=== PATIENT | female | born 1970 | race Caucasian/White ===

== ENCOUNTER 2017-09-19 21:38 | Inpatient (IN) ==
[2017-09-19] MEDS ORDERED: 0.9 % Sodium Chloride 1,000 ML IVC ONE (21:58)
[2017-09-19 22:21] LABS: Bilirubin,Urine Negative (Negative); Blood,Urine Negative (Negative); Clarity,Urine Cloudy (Clear); Color,Urine Yellow (Yellow); Glucose,Urine (UA) Normal (Normal); Ketones,Urine Negative (Negative); Leukocyte Esterase,Urine Small (Negative); Nitrite,Urine Negative (Negative); Protein,Urine 30 mg/dL (Neg-Trace); Specific Gravity,Urine 1.022 (1.010-1.025); Urobilinogen,Urine Normal (Normal)
[2017-09-19 22:22] LABS: Bacteria,Urine None Seen per hpf (None-Few); Squamous Epithelial Cell,Urine Many per lpf (None-Few)
[2017-09-19 22:28] LABS: Basophils # 0.1 K/mcL (0.0-0.2); Basophils % 0.8 %; Eosinophils # 0.4 K/mcL (0.0-0.6); Hematocrit 45.2 % (35.3-44.9); Immature Granulocytes % 0.5 % (0-4); Lymphocytes # 4.3 K/mcL (0.6-4.6); Lymphocytes % 49.5 %; Mean Corpuscular HGB Conc 33.2 g/dL (31.6-35.5); Mean Corpuscular Hemoglobin 30.5 pg (28.0-33.3); Mean Corpuscular Volume 92.1 fL (83.0-100.0); Mean Platelet Volume 9.9 fL (9.4-12.4); Monocytes # 0.5 K/mcL (0.0-1.3); Monocytes % 6.1 %; Neutrophils # 3.3 K/mcL (1.6-8.9); Platelet Count 270 K/mcL (140-400); Red Blood Count 4.91 M/mcL (3.82-4.97); Red Cell Distribution Width 11.9 % (11.5-14.5); Segmented Neutrophils % 38.1 %
[2017-09-19 22:37] LABS: Activated Partial Thrombo Time 23.1 Seconds (26.0-36.0)
[2017-09-19 22:37] LABS: Hyaline Casts,Urine Many per lpf (None-Few)
--- NOTE | 2017-09-19 22:38 | Emergency Department Note ---
Disposition Clinical Impression: Syncope Qualifiers: Syncope type: unspecified Qualified Code(s): R55 - Syncope and collapse Disposition: Still a Patient Forms: ED Satisfaction Letter Time of Disposition: 22:42 General Adult HPI - General Chief complaint: ED Syncope Stated complaint: AMS Time Seen by Provider: 09/19/17 21:42 Source: patient, family, EMS Mode of arrival: EMS Limitations: no limitations Nursing Notes Reviewed: Yes Vital Signs Reviewed: Yes - History of Present Illness HPI Narrative: 47-year-old female presenting to the emergency department via EMS with acute altered mental status. Patient was out eating dinner at a restaurant with her family when she stated she felt sick to her stomach and then leaned her head against the wall and "dazed out". Family states she did not respond for multiple minutes. Patient did not lose consciousness. Patient did not fall or hit her head. Patient denies any chest pain, shortness of breath, abdominal pain. She states she has a significant past medical history of a right-sided carotid dissection in 1994. Otherwise patient is healthy. Patient denies any symptoms like this before. She states she has no focal neurological deficit now. She is stable with no complaints at this time. Pain Scale: 0 - Related Data Allergies Allergy/AdvReac Type Severity Reaction Status Date / Time sulfamethoxazole Allergy Hives Verified 09/19/17 21:41 [From Bactrim] trimethoprim [From Bactrim] Allergy Hives Verified 09/19/17 21:41 All systems ED: reviewed and negative except as stated. Constitutional: Denies: fever, chills Eyes: Reports: as per HPI ENT ED: Reports: as per HPI Cardiovascular: Denies: chest pain, palpitations Respiratory: Denies: cough, dyspnea, wheezes Gastrointestinal: Denies: abdominal pain, nausea, vomiting Genitourinary: Reports: as per HPI Musculoskeletal: Reports: as per HPI Integumentary: Reports: as per HPI Neurological: Denies: weakness, numbness, paresthesias Psychiatric: Reports: as per HPI Endocrine: Reports: as per HPI Hematological/Lymphatic: Reports: as per HPI Allergic/Immunologic: Reports: as per HPI Past Medical History - Past Medical History Attestation: Yes The following information was validated with the patient. Medical history: Reports: CVA Psychiatric history: Reports: anxiety, depression - Social History Smoking Status: Current some day smoker Smokeless Tobacco Status: No Alcohol use: Reports: occasionally, recent Drug use: Reports: none Physical Exam - General Limitations: no limitations General appearance: alert, in no apparent distress - Head Head exam: atraumatic, normocephalic, normal inspection - Eye Eye exam: Present: normal appearance, PERRL, EOMI. Absent: scleral icterus, conjunctival injection, nystagmus - ENT ENT exam: normal oropharynx, mucous membranes moist - Chest Chest inspection: Present: normal inspection, symmetric chest wall rise. Absent : tenderness, rash - Respiratory Respiratory exam: Present: normal lung sounds bilaterally. Absent: respiratory distress, wheezes - Cardiovascular Cardiovascular exam: Present: regular rate, normal rhythm, normal heart sounds - Abdominal Exam Abdominal exam: Present: soft, Non-Tender. Absent: distention, guarding, rebound - Extremities Exam Extremities exam: Present: normal inspection, full ROM - Neurological Exam Neurological exam: Present: alert, oriented X3, CN II-XII intact, other (No focal neurological deficit. Patient's cerebellar exam within normal limits. Cranial nerve exam within normal limits. Bilateral upper extremity 5 out of 5 muscle strength. Sensation intact bilateral upper and lower extremity. Distal pulses 2+ in all extremities.). Absent: motor sensory deficit - Psychiatric Psychiatric exam: Present: normal affect, normal mood - Skin Skin exam: Present: warm, intact Course Course Narrative: 47-year-old female presenting to the emergency department chief complaint of acute altered mental status. Patient has significant history of previous carotid dissection. We will obtain basic lab work for syncope along with a CTA head and neck. Patient's alert and oriented 3 in the room with stable vital signs at this time. Patient agrees with the plan. She has a nonfocal neurological exam at this time. Patient's dates she has no complaints and is at baseline at this time. - Reevaluation(s) Reevaluation #1: Patient's lab work is pending and imaging pending at this time. I will sign the patient to my fellow resident Dr. Munguia at this time. Patient's alert and oriented 3 in the room with stable vital signs at this time. Time: 22:42 Vital Signs Temperature 97.7 F 09/19/17 21:42 Pulse Rate 76 09/19/17 21:42 Respiratory Rate 17 09/19/17 21:42 Blood Pressure 118/59 09/19/17 21:42 O2 Sat by Pulse Oximetry 99 09/19/17 21:42 Temperature 97.7 F 09/19/17 21:42 Pulse Rate 59 09/19/17 22:24 Respiratory Rate 18 09/19/17 22:24 Blood Pressure 118/59 09/19/17 22:24 O2 Sat by Pulse Oximetry 98 09/19/17 22:24 Oxygen Delivery Oxygen Delivery Room Air Medical Decision Making - Lab Data Result diagrams: 09/19/17 22:16 09/19/17 22:16 Lab Results 09/19/17 09/19/17 09/19/17 Range/Units 22:10 22:16 22:16 WBC 8.8 (4.3-11.1) K/mcL RBC 4.91 (3.82-4.97) M/mcL Hgb 15.0 (11.5-15.4) g/dL Hct 45.2 H (35.3-44.9) % MCV 92.1 (83.0-100.0) fL MCH 30.5 (28.0-33.3) pg MCHC 33.2 (31.6-35.5) g/dL RDW 11.9 (11.5-14.5) % Plt Count 270 (140-400) K/mcL MPV 9.9 (9.4-12.4) fL Immature Gran % 0.5 (0-4) % Seg Neutrophils % 38.1 % Lymphocytes % 49.5 % Monocytes % 6.1 % Eosinophils % 5.0 % Basophils % 0.8 % Neutrophils # 3.3 (1.6-8.9) K/mcL Lymphocytes # 4.3 (0.6-4.6) K/mcL Monocytes # 0.5 (0.0-1.3) K/mcL Eosinophils # 0.4 (0.0-0.6) K/mcL Basophils # 0.1 (0.0-0.2) K/mcL PT 11.0 (9.4-12.1) Seconds INR 1.0 APTT 23.1 L (26.0-36.0) Seconds Sodium (136-145) mEq/L Potassium (3.5-4.5) mEq/L Chloride (98-109) mEq/L Carbon Dioxide (19-29) mEq/L BUN (7-20) mg/dL Creatinine (0.57-1.11) mg/dL Est GFR ( Amer) (> 60) Est GFR (Non-Af Amer) (> 60) BUN/Creatinine Ratio (6-26) Glucose (70-99) mg/dL Calculated Osmolality (280-300) Lactic Acid (0.5-2.2) mmol/L Calcium (8.6-10.8) mg/dL Total Bilirubin (0.2-1.2) mg/dL AST (5-34) Units/L ALT (0-55) Units/L Alkaline Phosphatase (38-126) Units/L Troponin I (0-0.03) ng/mL Serum Total Protein (6.0-8.3) g/dL Albumin (3.5-5.0) g/dL Globulin (2.4-3.5) g/dL Albumin/Globulin Ratio (1.1-2.2) Ur Specimen Adequacy See below A Urine Color Yellow (Yellow) Urine Clarity Cloudy A (Clear) Urine pH 6.0 (5.0-8.0) pH Units Ur Specific [place] 1.022 (1.010-1.025) Urine Protein 30 H (Neg-Trace) mg/dL Urine Glucose (UA) Normal (Normal) mg/dL Urine Ketones Negative (Negative) mg/dL Urine Blood Negative (Negative) Urine Nitrite Negative (Negative) Urine Bilirubin Negative (Negative) Urine Urobilinogen Normal (Normal) mg/dL Ur Leukocyte Esterase Small H (Negative) Urine Microscopic RBC 3-5 H (0-3) per hpf Urine Microscopic WBC 5-15 H (0-3) per hpf Ur Squamous Epith Cells Many H (None-Few) per lpf Urine Bacteria None Seen (None-Few) per hpf Hyaline Casts Many H (None-Few) per lpf 09/19/17 09/19/17 09/19/17 Range/Units 22:16 22:16 22:16 WBC (4.3-11.1) K/mcL RBC (3.82-4.97) M/mcL Hgb (11.5-15.4) g/dL Hct (35.3-44.9) % MCV (83.0-100.0) fL MCH (28.0-33.3) pg MCHC (31.6-35.5) g/dL RDW (11.5-14.5) % Plt Count (140-400) K/mcL MPV (9.4-12.4) fL Immature Gran % (0-4) % Seg Neutrophils % % Lymphocytes % % Monocytes % % Eosinophils % % Basophils % % Neutrophils # (1.6-8.9) K/mcL Lymphocytes # (0.6-4.6) K/mcL Monocytes # (0.0-1.3) K/mcL Eosinophils # (0.0-0.6) K/mcL Basophils # (0.0-0.2) K/mcL PT (9.4-12.1) Seconds INR APTT (26.0-36.0) Seconds Sodium 137 (136-145) mEq/L Potassium 3.6 (3.5-4.5) mEq/L Chloride 104 (98-109) mEq/L Carbon Dioxide 22 (19-29) mEq/L BUN 10 (7-20) mg/dL Creatinine 0.85 (0.57-1.11) mg/dL Est GFR ( Amer) > 60 (> 60) Est GFR (Non-Af Amer) > 60 (> 60) BUN/Creatinine Ratio 12 (6-26) Glucose 54 L (70-99) mg/dL Calculated Osmolality 281 (280-300) Lactic Acid 2.3 H (0.5-2.2) mmol/L Calcium 9.0 (8.6-10.8) mg/dL Total Bilirubin 0.2 (0.2-1.2) mg/dL AST 16 (5-34) Units/L ALT 18 (0-55) Units/L Alkaline Phosphatase 81 (38-126) Units/L Troponin I 0.00 (0-0.03) ng/mL Serum Total Protein 7.5 (6.0-8.3) g/dL Albumin 3.7 (3.5-5.0) g/dL Globulin 3.8 H (2.4-3.5) g/dL Albumin/Globulin Ratio 1.0 L (1.1-2.2) Ur Specimen Adequacy Urine Color (Yellow) Urine Clarity (Clear) Urine pH (5.0-8.0) pH Units Ur Specific [place] (1.010-1.025) Urine Protein (Neg-Trace) mg/dL Urine Glucose (UA) (Normal) mg/dL Urine Ketones (Negative) mg/dL Urine Blood (Negative) Urine Nitrite (Negative) Urine Bilirubin (Negative) Urine Urobilinogen (Normal) mg/dL Ur Leukocyte Esterase (Negative) Urine Microscopic RBC (0-3) per hpf Urine Microscopic WBC (0-3) per hpf Ur Squamous Epith Cells (None-Few) per lpf Urine Bacteria (None-Few) per hpf Hyaline Casts (None-Few) per lpf Attestation Statement - Attestation Attestation: I, Robert Juan, examined this patient and my medical decision-making was reviewed with the POT ANNEALER/PA/Advanced Practice Nurse/Resident Physician. I agree with the documented findings, disposition and treatment plan as described except to the extent set forth below. 47-year-old female presents emergency Department after syncopal episode. Patient was in a restaurant, suddenly felt lightheaded and lost consciousness. Patient was apparently unconscious until EMS arrived however once she was in the EMS truck she awoke and did not have a postictal period. Patient did not receive Narcan or other medical intervention. Patient is alert and oriented in the emergency department. Patient denies chest pain, nausea, vomiting, palpitations prior to losing consciousness. EKG shows a normal sinus rhythm without evidence of ischemia. Patient care will be transferred to Dr. Perez pending laboratory evaluation and imaging and disposition.
[2017-09-19 22:44] LABS: Alanine Aminotransferase 18 Units/L (0-55); Albumin 3.7 g/dL (3.5-5.0); Alkaline Phosphatase 81 Units/L (38-126); Aspartate Amino Transferase 16 Units/L (5-34); BUN/Creatinine Ratio 12 (6-26); Bilirubin,Total 0.2 mg/dL (0.2-1.2); Blood Urea Nitrogen 10 mg/dL (7-20); Carbon Dioxide 22 mEq/L (19-29); Chloride 104 mEq/L (98-109); Globulin 3.8 g/dL (2.4-3.5); Glucose 54 mg/dL (70-99); Osmolality,Calculated 281 (280-300); Potassium 3.6 mEq/L (3.5-4.5); Sodium 137 mEq/L (136-145); Total Protein 7.5 g/dL (6.0-8.3); eGFR For African Americans > 60 (> 60); eGFR For Non-African Americans > 60 (> 60)
[2017-09-20] MEDS ORDERED: D5% in 0.9% NACL w KCl 20 MEQ/1,000 ML MLS IVC SCH (03:45)
--- NOTE | 2017-09-20 05:39 | Emergency Department Note ---
START Narrative - START START: I examined this patient and my medical decision-making was reviewed with the Resident Physician. I agree with the documented findings, disposition and treatment plan as described except to the extent set forth below. Patient presents with syncope. 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 Initially his hypoglycemia. Plan to admit for further evaluation of hyperglycemia, syncope, carotid occlusion.
[2017-09-20] MEDS ORDERED: Acetaminophen 325 MG TABLET PO PRN (06:18)
[2017-09-20] MEDS ORDERED: Naloxone 0.4 MG/ML INJ IVP PRN (06:18)
--- NOTE | 2017-09-20 06:31 | Internal Med History&Physical ---
Date of Encounter: 09/20/17 Time of Encounter: 06:10 Assessment and Plan (1) Seizure Current visit: Yes Status: Acute 1. Will place in seizure precautions. 2. Will order MRI and EEG. 3. Consult Neurology. 4. Monitor hourly glucose levels and continue IVF with Dextrose for now. 5. Hold Wellbutrin and Abilify for concerns of possible seizure side effects. (2) Hypoglycemia Current visit: Yes Status: Acute 1. Hourly glucose checks and continued IVF with dextrose until glucose levels stabilize. 2. Check TSH. 3. Patient denies any prolonged fasting or diet change. (3) DVT prophylaxis Current visit: Yes Status: Acute 1. Heparin SQ. Internal Medicine - H&P: HPI Chief complaint: seizure; low glucose Admitted From: Emergency Dept Plans for Post Hospital Care: Home History of present illness: Ms. Patel is a 47 year old female [facility] of [facility] and new onset seizure witnessed by the patient's daughter. Patient does not recall any events of last night other then waking up with EMS at her side and in the hospital. Patient states that her daughter called EMS after she saw the patient having what appeared to be seizure activity and unresponsiveness. In the ER, patient was noted to be hypoglycemic and was given dextrose as well as IV fluids. She was subsequently admitted to the hospitalist service. Upon my assessment of the patient, she feels back to her baseline. She does not recall any events of last night other than as noted above. She has never had seizure activity before. She denies any fevers, chills, cough, vomiting, or diarrhea. She is not diabetic and has not been trying to lose weight or curb her diet. She has been eating regularly and has never had problems with hypoglycemia before. 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 Other than difficulty with her gait and ambulation, she has adapted well to her disability. She does not take any chronic medications other than Wellbutrin and Abilify. Based upon my prior knowledge of Wellbutrin, I suspect that this may be associated with rare seizure side effects. We will withhold her home medications until we can confirm the medications and side effects. Meanwhile, I have her on hourly glucose checks and IV fluids with dextrose until her glucose can stabilize. She denies taking any other medications -- either prescribed or [id number]. Past Med Surg Social Fam HX - Past Medical History Attestation: Yes The following information was validated with the patient. Source: patient Medical history: CVA Psychiatric history: anxiety, depression - Past Surgical History Surgical History: no surgical history - Social History Smoking Status: Current some day smoker Smokeless Tobacco Status: No Alcohol use: occasionally, recent Drug use: none Current living situation: Home, With Family Activity Level: Independent ambulation Recent Out of Country Travel Within the Last 8 Weeks: No - Family History Mother Hx Family Neurologic Disorders: Yes (stroke) Internal Medicine - H&P: Meds 3 Allergy/AdvReac Type Severity Reaction Status Date / Time sulfamethoxazole Allergy Hives Verified 09/19/17 21:41 [From Bactrim] trimethoprim [From Bactrim] Allergy Hives Verified 09/19/17 21:41 - Constitutional Constitutional: no chills, no fever(s), no night sweats - EENT Eyes: no blurry vision, no change in vision Ears: no ear pain, no tinnitus Nose, mouth and throat: no nasal congestion, no sinus pressure, no sore throat - Cardiovascular Cardiovascular ROS IM: no chest pain, no diaphoresis, no dyspnea, no dyspnea on exertion - Respiratory Respiratory: no cough, no dyspnea, no hemoptysis - Gastrointestinal Gastrointestinal: no abdominal pain, no diarrhea, no hematemesis, no hematochezia, no melena, no nausea, no vomiting - Genitourinary Genitourinary: no dysuria, no flank pain, no hematuria - Musculoskeletal Musculoskeletal ROS IM: no arthralgias, no atrophy, no back pain - Integumentary Integumentary IM: no rash, no jaundice - Neurological Neurological ROS: convulsions, no dizziness, no focal weakness, no frequent falls, no headache(s), no numbness, no paresthesias - Psychiatric Psychiatric: anxiety, no depression - Endocrine Endocrine IM: no cold intolerance, no heat intolerance, no polydipsia, no polyphagia, no polyuria - Hematologic/Lymphatic Hematologic/Lymphatic: no easy bruising - Allergic/Immunologic Allergic/Immunologic: no wheezing, no GI upset with certain foods - Constitutional Vitals: Temp Pulse Resp BP Pulse Ox 98.3 F 68 20 113/62 95 09/20/17 03:01 09/20/17 03:01 09/20/17 03:01 09/20/17 03:01 09/20/17 03:01 General appearance: Present: cooperative, A&O X 3, pleasant, no acute distress, answers questions appropriately - Head Head exam: Present: atraumatic, normal inspection - Expanded Head Exam Head exam expanded: Absent: abrasion, contusion, general tenderness - Eye Eye exam: Present: EOMI, normal appearance, PERRL. Absent: scleral icterus Pupils: Present: normal accommodation - ENT ENT exam: Present: mucous membranes dry, normal exam - Neck Neck exam general surgery: Present: full ROM, supple. Absent: tenderness, nuchal rigidity - Respiratory Respiratory exam: Present: CTAB. Absent: chest wall tenderness, rales, respiratory distress, rhonchi, wheezes - Cardiovascular Cardiovascular exam: Present: RRR, +S1, +S2. Absent: diastolic murmur, systolic murmur - GI/Abdominal GI/Abdominal exam: Present: normal bowel sounds, soft. Absent: hepatomegaly, mass, splenomegaly, tenderness - Extremities Exam Extremities exam: Present: full ROM, normal capillary refill, warm, radial pulses palpable and symmetrical. Absent: calf tenderness, joint swelling, pedal edema - Back Exam Back exam: Present: normal inspection. Absent: CVA tenderness (L), CVA tenderness (R) - Neurological Exam Neurological exam: Present: alert, CN II-XII intact, oriented X3 Additional comments: mild spasticity and exaggerated reflex in her left lower extremity - Psychiatric Psychiatric exam: Present: normal affect, normal mood - Skin Skin exam: Present: dry, warm. Absent: rash Internal Med - H&P Results - Labs CBC & Chem 7: 09/19/17 22:16 09/19/17 22:16 - EKG Data -: EKG Interpreted by Myself - EKG Data EKG comments: 09/20/17 06:41 NSR; no acute changes - Diagnostic Studies Chest x-ray Status: image reviewed by me (negative)
[2017-09-20 06:51] LABS: Basophils # 0.1 K/mcL (0.0-0.2); Basophils % 0.8 %; Eosinophils # 0.3 K/mcL (0.0-0.6); Eosinophils % 4.2 %; Hematocrit 37.4 % (35.3-44.9); Immature Granulocytes % 0.3 % (0-4); Immature Platelets 3.4 % (1.1-6.1); Lymphocytes # 3.7 K/mcL (0.6-4.6); Lymphocytes % 46.6 %; Mean Corpuscular HGB Conc 33.4 g/dL (31.6-35.5); Mean Corpuscular Hemoglobin 30.4 pg (28.0-33.3); Monocytes # 0.7 K/mcL (0.0-1.3); Monocytes % 8.7 %; Neutrophils # 3.1 K/mcL (1.6-8.9); Platelet Count 236 K/mcL (140-400); Red Blood Count 4.11 M/mcL (3.82-4.97); Red Cell Distribution Width 11.9 % (11.5-14.5); Segmented Neutrophils % 39.4 %
[2017-09-20 06:54] LABS: Hemoglobin 12.5 g/dL (11.5-15.4)
[2017-09-20 07:08] LABS: Alanine Aminotransferase 16 Units/L (0-55); Alkaline Phosphatase 63 Units/L (38-126); Aspartate Amino Transferase 15 Units/L (5-34); BUN/Creatinine Ratio 17 (6-26); Bilirubin,Total 0.2 mg/dL (0.2-1.2); Blood Urea Nitrogen 12 mg/dL (7-20); Calcium 8.1 mg/dL (8.6-10.8); Carbon Dioxide 21 mEq/L (19-29); Chloride 111 mEq/L (98-109); Globulin 2.9 g/dL (2.4-3.5); Glucose 105 mg/dL (70-99); Magnesium 1.9 mg/dL (1.6-2.6); Osmolality,Calculated 288 (280-300); Potassium 4.2 mEq/L (3.5-4.5); Sodium 139 mEq/L (136-145); eGFR For African Americans > 60 (> 60); eGFR For Non-African Americans > 60 (> 60)
[2017-09-20 07:13] LABS: Albumin 2.9 g/dL (3.5-5.0); Total Protein 5.8 g/dL (6.0-8.3)
[2017-09-20 07:29] LABS: Thyroid Stimulating Hormone 3.242 mcIU/mL (0.350-4.840)
--- NOTE | 2017-09-20 09:21 | Internal Med Progress Note ---
<Steve Alejandra - Last Filed: 09/20/17 10:43> Date of Encounter: 09/20/17 Time of Encounter: 09:00 - Assessment and plan (1) Seizure Current Visit: Yes Status: Acute Assessment and plan: No additional seizures since admission. Patient reports feeling better with improvement in hypoglycemia. 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 EEG ordered Neurology has been consulted for assistance with possible new seizure disorder, though seizure could be due to hypoglycemia. Unlikely due to medications as she has been taking these for some time (2) Hypoglycemia Current Visit: Yes Status: Acute Assessment and plan: Patient's blood sugar at stabilized with IV fluids containing dextrose. All Accu-Cheks had shown moderate blood sugar and patient reports feeling much improved since admission. TSH is normal. Patient denies any new medications including OTCs. Patient denies dieting states episode occurred following meal at [facility]. Currently unsure of reason for hypoglycemia. We will change Accu-Cheks to every 4 hours, consider discontinuation if continued normal blood sugar (3) DVT prophylaxis Current Visit: Yes Status: Acute Assessment and plan: We will continue patient on 5000 units heparin subcutaneous twice a day - Subjective Interval history: Patient reports she is doing well this morning and feels much improved from yesterday. She reports that during her episode she appeared awake but did suffer some urinary incontinence. She denies ever having this before, denies fever/chills, denies feeling ill at all. All Accu-Cheks performed since admission to the hospital after normal blood sugar. - Constitutional Vitals: Temp Pulse Resp BP Pulse Ox 98.6 F 63 16 108/65 97 09/20/17 07:31 09/20/17 07:31 09/20/17 07:31 09/20/17 07:31 09/20/17 07:31 General appearance: Present: cooperative, A&O X 3, pleasant, no acute distress, answers questions appropriately Exam: General: Cooperative, pleasant, no acute distress, alert and oriented 3, answers questions appropriately HEENT: Normocephalic, atraumatic, Conjunctiva pink, sclera anicteric, EOMI, PERRL, oral mucosa moist, no orophargeal erythema or exudates, no carotid bruits and auscultation, no tongue lacerations noted Respiratory: No accessory muscle usage, clear to auscultation bilaterally, no wheezes/rhonchi/rales appreciated Cardiovascular: Regular rate and rhythm, S1 and S2 present, no murmurs/rubs/ gallops/clicks appreciated GI/abdominal: Nondistended, nontender, soft, normal bowel sounds, no peritoneal signs Extremities: No calf tenderness, no pedal edema appreciated, warm, lower extremity pulses palpable and symmetrical Neurological: Alert and oriented 3, no facial droop, no focal deficits Skin: Dry, intact, normal color Internal Medicine: Result - Labs CBC & Chem 7: 09/20/17 06:43 09/20/17 06:43 Labs: Short CBC 09/20/17 Range/Units 06:43 WBC 7.9 (4.3-11.1) K/mcL Hgb 12.5 D (11.5-15.4) g/dL Hct 37.4 (35.3-44.9) % Plt Count 236 (140-400) K/mcL Neutrophils # 3.1 (1.6-8.9) K/mcL BMP 09/20/17 06:43 Sodium 139 Potassium 4.2 Chloride 111 H Carbon Dioxide 21 BUN 12 Creatinine 0.72 Glucose 105 H Calcium 8.1 L Liver Function 09/20/17 Range/Units 06:43 Total Bilirubin 0.2 (0.2-1.2) mg/dL AST 15 (5-34) Units/L ALT 16 (0-55) Units/L Alkaline Phosphatase 63 (38-126) Units/L Albumin 2.9 L D (3.5-5.0) g/dL - ABG Interpretation ABG results: PT/INR, D-dimer PT 11.0 Seconds (9.4-12.1) 09/19/17 22:16 Consult Discharge Plan - Plan Referrals: Desiree Betancur CNP [Primary Care Provider] - <Wong Finn - Last Filed: 09/20/17 18:18> Date of Encounter: 09/20/17 - Assessment and plan (1) Seizure Current Visit: Yes Status: Suspected (2) Syncope Current Visit: Yes Status: Acute Qualifiers: Syncope type: unspecified Qualified Code(s): R55 - Syncope and collapse (3) Hypoglycemia Current Visit: Yes Status: Acute (4) CVA, old, hemiparesis Current Visit: Yes Status: Acute - Constitutional Vitals: Temp Pulse Resp BP Pulse Ox 98.5 F 70 16 114/80 96 09/20/17 15:27 09/20/17 15:27 09/20/17 15:27 09/20/17 15:27 09/20/17 15:27 Internal Medicine: Result - Labs CBC & Chem 7: 09/20/17 06:43 09/20/17 06:43 Labs: Short CBC 09/20/17 Range/Units 06:43 WBC 7.9 (4.3-11.1) K/mcL Hgb 12.5 D (11.5-15.4) g/dL Hct 37.4 (35.3-44.9) % Plt Count 236 (140-400) K/mcL Neutrophils # 3.1 (1.6-8.9) K/mcL BMP 09/20/17 06:43 Sodium 139 Potassium 4.2 Chloride 111 H Carbon Dioxide 21 BUN 12 Creatinine 0.72 Glucose 105 H Calcium 8.1 L Liver Function 09/20/17 Range/Units 06:43 Total Bilirubin 0.2 (0.2-1.2) mg/dL AST 15 (5-34) Units/L ALT 16 (0-55) Units/L Alkaline Phosphatase 63 (38-126) Units/L Albumin 2.9 L D (3.5-5.0) g/dL - ABG Interpretation ABG results: PT/INR, D-dimer PT 11.0 Seconds (9.4-12.1) 09/19/17 22:16 - Attending Attestation I examined this patient and my medical decision-making was reviewed with the Resident Physician on 09/20/17. I agree with the documented findings, disposition and treatment plan as described except to the extent set forth below. Ms Patel is currently admitted for probable seizure. At this time she is doing OK. She remains moderate to high risk due to potential for further neuro issues. Ms. De Jesus feels OK at this time. No fever or chills. No further neuro episodes. Blood sugars stable now. IV fluids stopped. Exam Alert. Comfortable Heart reg No wheeze Abd soft I/P 1. Seizure - possible. Neuro eval appreciated 2. Hx CVA with residual Further diagnoses and plan as above.
[2017-09-20 13:57] LABS: Hemoglobin A1C 5.1 %
--- NOTE | 2017-09-20 15:56 | Neurology - Consult Note ---
Date of Encounter: 09/20/17 Time of Encounter: 07:55 Assessment and Plan (1) Spell of altered consciousness Current Visit: Yes Status: Acute This patient will apparently had this spell of altered consciousness perhaps may have convulsive syncope but at the same time it possible that she could have a seizure keeping the context that she is noted to be hypoglycemic perhaps it may have precipitated that event but on the other hand she was also on Wellbutrin and Abilify and these medication and prevent particular Wellbutrin tend to decrease the seizure threshold especially along with hypoglycemia. On the other hand patient had of his history of significant large MCA infarct along with occlusion of the internal carotid artery with evidence of encephalomalacia on her imaging studies certainly she is at high risk for seizure as well But in the current context seemed likely do have several other reasons beside the stroke that may have precipitated this event at this time I would not recommend starting her on any anticonvulsive medication. In the meantime he have to make sure that she is not having these hypoglycemic episodes and certainly need to check for any underlying condition that may be precipitating these hypoglycemic events on the other hand check for any underlying infectious or metabolic abnormality that may have contributed to this event. We will check an EEG to make sure there is no underlying interictal abnormality. 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 We will follow the patient with you History of Present Illness HPI: Ms. Patel is a 47 year old female admitted via ER, with chief complaints of passing out, or may had a seizure witnessed by the patient's daughter. she is not able to recall any events of last night other then waking up with EMS. Patient states that her daughter called EMS after she saw the patient having what appeared to be seizure activity and unresponsiveness. In the ER, patient was noted to be hypoglycemic and was given dextrose as well as IV fluids. She was subsequently admitted to the hospitalist service. now Patient, feels back to her baseline. She does not recall any events of last night, she denies having any seizure activity before. She denies any fevers, chills, cough, vomiting, or diarrhea. 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 Other than difficulty with her gait and ambulation, she did not had any other issues, she was supposed to be on ASA but she is not taking it now. She is on Wellbutrin and Abilify. denies taking any other medications Past Med Surg Social Fam HX - Past Medical History Medical history: CVA Psychiatric history: anxiety, depression - Past Surgical History Surgical History: no surgical history - Social History Smoking Status: Current some day smoker Smokeless Tobacco Status: No Alcohol use: occasionally, recent Drug use: none - Family History Mother Hx Family Neurologic Disorders: Yes (stroke) Medications and Allergies Aripiprazole [Abilify] 15 mg PO DAILY 09/20/17 [History] Bupropion HCl [Wellbutrin Xl] 300 mg PO DAILY 09/20/17 [History] 3 Allergy/AdvReac Type Severity Reaction Status Date / Time sulfamethoxazole Allergy Hives Verified 09/19/17 21:41 [From Bactrim] trimethoprim [From Bactrim] Allergy Hives Verified 09/19/17 21:41 All Systems: A 10-system review of systems was performed and is negative for pertinent findings except as documented above in the HPI. Physical Examination - Vital Signs Vital Signs: Initial Vital Signs Temp Pulse Resp BP Pulse Ox 97.7 F 76 17 118/59 99 09/19/17 21:42 09/19/17 21:42 09/19/17 21:42 09/19/17 21:42 09/19/17 21:42 - Constitutional General appearance: comfortable - Neurologic Sensorimotor examination: intact Detailed motor examination: grossly full strength in all extremities Motor examination - right side: 5/5: deltoids, biceps, triceps, wrist flexion, wrist extension, community health nurse supervisor, hip flexors, tibialis Anterior, quadriceps, toe extension (EHL), plantarflexion Motor examination - left side: 4/5: deltoids, biceps, triceps, wrist flexion, wrist extension, hip flexors, community health nurse supervisor, quadriceps, tibialis Anterior, toe extension (EHL), plantarflexion Detailed sensory examination: intact Reflexes: Biceps: 2+ (left ), Triceps: 2+ (left), Brachioradialis: 2+ (left), Patella: 2+ (left), Achilles: 2+ (left) Mental Status Examination: awake, alert, oriented to person, oriented to place, oriented to time, follows commands appropriately, answers questions appropriately, no agnosia, no aphasia, no aproxia Cranial nerve examination: PERRL, EOMI, no facial asymmetry is present, no dysarthria (dysmetria on left mild increase in tone on left with mild spasticity ) Results - Laboratory Findings CBC and BMP: 09/20/17 06:43 09/20/17 06:43 Abnormal lab findings: Abnormal lab results APTT 23.1 Seconds (26.0-36.0) L 09/19/17 22:16 Chloride 111 mEq/L (98-109) H 09/20/17 06:43 Glucose 105 mg/dL (70-99) H 09/20/17 06:43 POC Glucose 108 (58-89) H 09/20/17 10:23 Calcium 8.1 mg/dL (8.6-10.8) L 09/20/17 06:43 Serum Total Protein 5.8 g/dL (6.0-8.3) L D 09/20/17 06:43 Albumin 2.9 g/dL (3.5-5.0) L D 09/20/17 06:43 Albumin/Globulin Ratio 1.0 (1.1-2.2) L 09/20/17 06:43 Ur Specimen Adequacy See below A 09/19/17 22:10 Urine Clarity Cloudy (Clear) A 09/19/17 22:10 Urine Protein 30 mg/dL (Neg-Trace) H 09/19/17 22:10 Ur Leukocyte Esterase Small (Negative) H 09/19/17 22:10 Urine Microscopic RBC 3-5 per hpf (0-3) H 09/19/17 22:10 Urine Microscopic WBC 5-15 per hpf (0-3) H 09/19/17 22:10 Ur Squamous Epith Cells Many per lpf (None-Few) H 09/19/17 22:10 Hyaline Casts Many per lpf (None-Few) H 09/19/17 22:10 - Diagnostic Findings Additional findings: CT angio of neck showed Chronic appearing occlusion of the right internal carotid artery 1 cm distal to its origin through the supraclinoid segment. The right middle and anterior cerebral arteries are supplied by collateral [place] supply through patent anterior and right posterior communicating arteries. MRI of brain did not show any evidence of acute intracranial abnormality. Right frontal lobe encephalomalacia related to prior right MCA territory infarction Loss of normal flow-void in the right internal carotid artery in keeping with known occlusion Consult Discharge Plan - Plan Referrals: Desiree Betancur, AD COPY WRITER [Primary Care Provider] -
--- NOTE | 2017-09-20 16:08 | EEG/EMG/Oth Biometrics Report ---
EEG Procedure Report Date of procedure: 09/20/17 EEG Procedure: Routine EEG Procedure Note: pt with history of stroke now with spell of passing out seizure like activity Routine 18-channel digital EEG was obtained to rule out any seizure activity or focal abnormalities. FINDINGS: Background rhythm during awake stage shows well-organized, well- developed, average voltage 8 to 9 hertz alpha activity in the posterior regions. It blocks with eye opening and it is bilaterally synchronous and symmetrical. No [id number] discharges or any lateralizing abnormalities are seen. Photic stimulation did not produce any abnormalities. Hyperventilation was performed for 3 minutes. No abnormalities were found during the procedure. Intermittent EMG artifacts were seen. Stage II sleep was note off and on, with snoring artifact. IMPRESSION: Normal awake study. No epileptiform discharges or any other paroxysmal activities or focal abnormalities seen. Clinical correlation is recommended. please note that normal EEG does not exclude the diagnosis of seizures or epilepsy
[2017-09-20] MEDS: *HR* Heparin 5,000 UNIT/ML VIAL SQ SCH (18:05)
[2017-09-21] MEDS: *HR* Heparin 5,000 UNIT/ML VIAL SQ SCH (05:34)
[2017-09-21 07:30] VITALS: BP 96/64
--- NOTE | 2017-09-21 07:58 | Discharge Summary ---
<NySteve - Last Filed: 09/21/17 08:15> Date of Encounter: 09/21/17 Time of Encounter: 07:25 - Discharge Diagnosis (1) Spell of altered consciousness Priority: Primary Status: Acute (2) Seizure Priority: Primary Status: Suspected (3) Hypoglycemia Priority: Primary Status: Acute (4) DVT prophylaxis Priority: Secondary Status: Acute - Discharge Medications Prescriptions: Aspirin 325 mg PO DAILY #30 tablet BuPROPion XL (24 HR) [Wellbutrin Xl] 150 mg PO DAILY #30 tab.er.24h Home Medications: Aripiprazole [Abilify] 15 mg PO DAILY 09/20/17 [History] Aspirin 325 mg PO DAILY #30 tablet 09/21/17 [Rx] BuPROPion XL (24 HR) [Wellbutrin Xl] 150 mg PO DAILY #30 tab.er.24h 09/21/17 [Rx ] Allergies/Adverse Reactions: 3 Allergy/AdvReac Type Severity Reaction Status Date / Time sulfamethoxazole Allergy Hives Verified 09/19/17 21:41 [From Bactrim] trimethoprim [From Bactrim] Allergy Hives Verified 09/19/17 21:41 Date of admission: 09/20/17 06:18 Primary care physician: Desiree Betancur CNP Discharging clinician: Steve Alejandra Anticipated date of discharge: 09/21/17 - Patient Status Disposition: Home, Self-Care Condition: Good Functional capacity at discharge: independent ambulation Overall status at discharge: patient is back to baseline - Discharge Instructions Instructions: Bupropion (By mouth), Aspirin (By mouth), Holter Monitoring (DC) , Syncope (DC) Follow Up With: Desiree Betancur CNP [Primary Care Provider] - 09/28/17 10:15 am Additional Instructions: Please call EMS or return to ER if return of symptoms or additional episode of lightheadedness, loss of consciousness, seizure-like activity We will decrease Wellbutrin to 150 mg daily, continue Abilify Follow-up with your PCP in 1-2 weeks to discuss lab work and change in medication Follow up with PCP for results of Holter monitor - Diet and Activity Activity: resume usual activities as tolerated Diet: advance to your usual diet Interval History: Patient reports doing well having had no other episodes of lightheadedness or dizziness. She states she has been feeling well since admission to the hospital. She has no complaints of dizziness, lightheadedness, chest pain, shortness of breath, palpitations, fever, or chills. Hospital course: Ms. Patel is a 47 year old female with prior medical history of CVA due to congenital vascular abnormalities who presented to [facility] on 09/20/17 after having spells of altered consciousness while eating dinner earlier that evening. The event was witnessed by her family member reports of some "seizure- like" activity as well as reported urinary incontinence. At presentation she was found to be hypoglycemic with a blood sugar of 54 and was started on IV fluids with dextrose at this time. Since that initial stabilization numerous for and the patient reports she has been feeling well and has had no continued signs or symptoms of hypoglycemia, seizure, or altered mental status. She was placed on IV fluids with dextrose and her blood sugar was checked every hour initially. All of her blood sugar checks were found to be normal in the supplemental fluids with dextrose were discontinued. Neurology was consulted to assist with determining cause of the spell of altered consciousness. It was felt that he could possibly have been a seizure versus loss of consciousness, though EEG was negative. This was likely precipitated by her episode of hypoglycemia with medications that she is taking currently including Wellbutrin and Abilify. Initial lab work was ordered to help determine cause of patient upset hypoglycemia including hemoglobin A1c, TSH, random serum cortisol, C- peptide, and random serum insulin. Her A1c, TSH and serum cortisol were all normal and we are waiting for the results of C-peptide and random insulin (as these are send out labs). Patient has continued to feel fine with no additional symptoms. All continuing blood glucose checks have been normal when patient has not been on IV fluids. This time patient feels safe for discharge with follow-up with her PCP on additional labs for review of medications. We will decrease patient Wellbutrin to 150 mg daily as this medication could lower seizure threshold. - Time Spent with Patient Total time spent providing and/or coordinating discharge services: Less than 30 minutes - Constitutional Vitals: Temp Pulse Resp BP Pulse Ox 98.1 F 72 16 96/64 95 09/21/17 04:12 09/21/17 07:27 09/21/17 07:27 09/21/17 07:27 09/21/17 04:12 General appearance: Present: cooperative, A&O X 3, pleasant, no acute distress, answers questions appropriately Exam: General: Cooperative, pleasant, no acute distress, alert and oriented 3, answers questions appropriately HEENT: Normocephalic, atraumatic, neck supple, trachea midline, Conjunctiva pink , sclera anicteric, oral mucosa moist, no orophargeal erythema or exudates Respiratory: No accessory muscle usage, clear to auscultation bilaterally, no wheezes/rhonchi/rales appreciated Cardiovascular: Regular rate and rhythm, S1 and S2 present, no murmurs/rubs/ gallops/clicks appreciated GI/abdominal: Nondistended, nontender, soft, normal bowel sounds, no peritoneal signs Extremities: No calf tenderness, no pedal edema appreciated, warm, lower extremity pulses palpable and symmetrical Neurological: Alert and oriented 3, no facial droop, no focal deficits <Wong Finn - Last Filed: 09/21/17 18:08> Date of Encounter: 09/21/17 - Discharge Diagnosis (1) Acute metabolic encephalopathy due to hypoglycemia Priority: Primary Status: Acute (2) Syncope Priority: Primary Status: Acute Qualifiers: Syncope type: unspecified Qualified Code(s): R55 - Syncope and collapse (3) Seizure Status: Suspected (4) CVA, old, hemiparesis Priority: Secondary Status: Chronic Procedures/tests Complete & Pending: Procedures Performed prior 72 hours Category Date Time Status ECG 48 holter monitor setup [ECG] Routine Y 09/21/17 13:27 Completed Date of admission: 09/20/17 06:18 Primary care physician: Desiree Betancur CNP Hospital course: Ms. Patel is a 47 year old female - Time Spent with Patient Total time spent providing and/or coordinating discharge services: My discharge time was 38min - Constitutional Vitals: Temp Pulse Resp BP Pulse Ox 98.4 F 72 16 96/64 95 09/21/17 07:27 09/21/17 07:27 09/21/17 07:27 09/21/17 07:27 09/21/17 04:12 - Attending Attestation I examined this patient and my medical decision-making was reviewed with the Resident Physician on 09/21/17. I agree with the documented findings, disposition and treatment plan as described except to the extent set forth below. Ms Patel has been admitted for acute encephalopathy due to hypoglycemia. Her blood sugars have been stable. She is afebrile and vitals stable. She is ready for discharge home. Exam Alert. Comfortable Heart reg No wheeze Abd soft No edema Plan D/C home Holter monitor at discharge Discuss further work up with PCP Some labs still pending.
[2017-09-21] MEDS ORDERED: BuPROPion XL (24 HR) 150 MG TABLET PO SCH (09:15)
[2017-09-21] MEDS ORDERED: ARIPiprazole 10 MG TABLET PO SCH (09:15)
--- NOTE | 2017-09-21 10:21 | Neurology Progress Note ---
Date of Encounter: 09/21/17 Time of Encounter: 07:35 Assessment and Plan (1) Spell of altered consciousness Current Visit: Yes Status: Acute This patient will apparently had this spell of altered consciousness perhaps may have convulsive syncope but at the same time it possible that she could have a seizure keeping the context that she is noted to be hypoglycemic perhaps it may have precipitated that event but on the other hand she was also on Wellbutrin and Abilify and these medication and prevent particular Wellbutrin tend to decrease the seizure threshold especially along with hypoglycemia. EEG has been negative though she did have risk factors for the seizures and particularly larger stroke that she had but in the current context and particularly with the hypoglycemia and being on Wellbutrin which has been discontinued now I would not recommend starting her on any seizure medication at this time. If patient suffered another episode or notices any other altered consciousness she could be seen in the neurology clinic as a follow-up. Subjective Interval history: Patient seems to be doing much better she is back to her baseline no focal motor weakness no further episode of any confusion MRI is negative for any acute stroke at the same time EEG was also negative for any seizure type of activity Objective - Constitutional Vitals: Temp Pulse Resp BP Pulse Ox 98.4 F 72 16 96/64 95 09/21/17 07:27 09/21/17 07:27 09/21/17 07:27 09/21/17 07:27 09/21/17 04:12 - Neurological Exam Sensorimotor examination: Present: intact Motor Examination: Present: grossly full strength in all extremities Motor examination - left side: 4/5: deltoids, biceps, triceps, wrist flexion, wrist extension, hip flexors, oxygen furnace operator, quadriceps, tibialis Anterior, toe extension (EHL), plantarflexion Sensation intact: Present: intact Mental Status Examination: Present: awake, alert, oriented to person, oriented to place, oriented to time, follows commands appropriately, answers questions appropriately, no agnosia, no aphasia, no aproxia Cranial nerve examination: Present: PERRL, EOMI, no facial asymmetry is present , no dysarthria (dysmetria on left mild increase in tone on left with mild spasticity) Results - Laboratory Findings CBC and BMP: 09/20/17 06:43 09/20/17 06:43 Abnormal lab findings: Abnormal lab results APTT 23.1 Seconds (26.0-36.0) L 09/19/17 22:16 Chloride 111 mEq/L (98-109) H 09/20/17 06:43 Glucose 105 mg/dL (70-99) H 09/20/17 06:43 POC Glucose 104 (58-89) H 09/20/17 16:41 Calcium 8.1 mg/dL (8.6-10.8) L 09/20/17 06:43 Serum Total Protein 5.8 g/dL (6.0-8.3) L D 09/20/17 06:43 Albumin 2.9 g/dL (3.5-5.0) L D 09/20/17 06:43 Albumin/Globulin Ratio 1.0 (1.1-2.2) L 09/20/17 06:43 Ur Specimen Adequacy See below A 09/19/17 22:10 Urine Clarity Cloudy (Clear) A 09/19/17 22:10 Urine Protein 30 mg/dL (Neg-Trace) H 09/19/17 22:10 Ur Leukocyte Esterase Small (Negative) H 09/19/17 22:10 Urine Microscopic RBC 3-5 per hpf (0-3) H 09/19/17 22:10 Urine Microscopic WBC 5-15 per hpf (0-3) H 09/19/17 22:10 Ur Squamous Epith Cells Many per lpf (None-Few) H 09/19/17 22:10 Hyaline Casts Many per lpf (None-Few) H 09/19/17 22:10 Consult Discharge Plan - Plan Instructions: Bupropion (By mouth), Aspirin (By mouth), Syncope (DC) Additional Instructions: Please call EMS or return to ER if return of symptoms or additional episode of lightheadedness, loss of consciousness, seizure-like activity We will decrease Wellbutrin to 150 mg daily, continue Abilify Follow-up with your PCP in 1-2 weeks to discuss lab work and change in medication Follow up with PCP for results of Holter monitor Referrals: Desiree Betancur ACCOUNTS PAYABLE COORDINATOR [Primary Care Provider] - 09/28/17 10:15 am Prescriptions: Aspirin 325 mg PO DAILY #30 tablet BuPROPion XL (24 HR) [Wellbutrin Xl] 150 mg PO DAILY #30 tab.er.24h
--- NOTE | 2017-09-22 19:02 | Electrocardiograph Report ---
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
[2017-09-23 07:24] LABS: C-Peptide 3.8 ng/mL (0.8-3.5)
== END 2017-09-21 15:44 | disposition home or self-care (01) | DRG 640 ==
LOC: EMEROO 21:38 → 2NENU 21:38
PROVIDERS: ADMIT Pediatrics; ATTEND Internal Medicine